=== PATIENT | female | born 1990 | race Two or more races ===

== ENCOUNTER 2020-11-22 12:07 | Outpatient (CLI) | payer MEDICAID ==
[~2020-11-22 12:07] MED LIST: LINZESS145 MCG PO; PROBIOTIC1 EAC5 PO
[2020-11-22 12:16] VITALS: BP 108/76
--- NOTE | 2020-11-23 14:12 | General Progress Note ---
Subjective ROS Limited/Unobtainable: Yes Allergies: Coded Allergies: No Known Allergies (Unverified , 08/18/19) Objective General Appearance: alert EENT: normal ENT inspection Neck: supple Cardiovascular: normal rate Respiratory/Chest: decreased breath sounds Abdomen: normal bowel sounds, non tender, soft Extremities: non-tender Assessment/Plan Assessment/Plan: hemoroidal pain and bleeding needs repeat banding plan when authorized Hang Jose MD Nov 23, 2020 14:12
== END 2020-11-22 14:41 | disposition home or self-care (01) ==
LOC: PAN 12:07
DX: K64.9 Unspecified hemorrhoids (principal); K63.5 Polyp of colon
CPT/HCPCS: 99212